=== PATIENT | female | born 1980 | race Asian ===

== ENCOUNTER 2017-01-14 00:52 | Inpatient (IN) | payer MEDICAID, OTHER ==
[2017-01-14] MEDS ORDERED: Dibucaine 1% 28.35 GM TUBE PR PRN (07:16)
[2017-01-14] MEDS ORDERED: Witch Hazel PAD* JAR TOPICAL PRN (07:16)
[2017-01-14] MEDS ORDERED: Misoprostol TAB* 200 MCG PR ONE (07:16)
[2017-01-14] MEDS ORDERED: Acetaminophen TAB* 325 MG PO PRN (07:16)
[2017-01-14] MEDS ORDERED: Glycerin ADULT SUPP PR PRN (07:16)
[2017-01-14] MEDS ORDERED: Ibuprofen TAB* 600 MG PO PRN (07:16)
[2017-01-14] MEDS ORDERED: Misoprostol TAB* 200 MCG ONE (07:21)
[2017-01-14] MEDS ORDERED: Simethicone CHEW TAB* 80 MG PO SCH (08:30)
[2017-01-14] MEDS: Docusate CAP* 100 MG PO SCH ×3 (08:54→19:36)
[2017-01-14] MEDS ORDERED: Hepatitis B Immune Globulin* 1 ML VIAL IM ONE (09:00)
[2017-01-15 08:39] LABS: Hematocrit 34 % (35-47); Hemoglobin 11.4 g/dl (12.0-16.0); Mean Corpuscular HGB Conc 34 g/dl (31-36); Mean Corpuscular Hemoglobin 33 pg (27-31); Mean Corpuscular Volume 97 fL (80-97); Mean Platelet Volume 8 um3 (7.4-10.4); Red Blood Count 3.46 10^6/ul (4.0-5.4); Red Cell Distribution Width 14 % (10.5-15); White Blood Count 9.1 10^3/ul (3.5-10.8)
[2017-01-15] MEDS ORDERED: Ferrous Gluconate TAB* 324 MG TAB PO SCH (09:00)
[2017-01-15] MEDS: Docusate CAP* 100 MG PO SCH ×3 (10:40→20:52)
[2017-01-16 07:58] VITALS: BP 116/67
--- NOTE | 2017-01-16 08:01 | PTEDU ---
Patient Name: JADEN ODOM JADEN ODOM selected video: Follow Me Mum: The [employer] to Successful to view on 01/16/2017 at 8:00:11 AM from [id number]
[2017-01-16] MEDS: Docusate CAP* 100 MG PO SCH (09:23)
== END 2017-01-16 13:39 | disposition home or self-care (01) | DRG 560 ==
LOC: MCHOBOUT 00:52 → MCHOB 03:07
PROVIDERS: ADMIT Midwife; ATTEND Midwife
PROC: 10E0XZZ Delivery of Products of Conception, External Approach (ICD-10-PCS; principal; 2017-01-14)
PROC: 0HQ9XZZ Repair Perineum Skin, External Approach (ICD-10-PCS; 2017-01-14)
DX: O77.0 Labor and delivery complicated by meconium in amniotic fluid (principal); O98.42 Viral hepatitis complicating childbirth; B18.1 Chronic viral hepatitis B without delta-agent; O69.89X0 Labor and delivery complicated by other cord complications, not applicable or unspecified; O70.0 First degree perineal laceration during delivery; Z3A.39 39 weeks gestation of pregnancy; Z37.0 Single live birth
CPT/HCPCS: 36415; 85025; 90371; A9270-GY